=== PATIENT | female | born 1995 | race Two or more races ===

== ENCOUNTER 2017-05-09 21:44 | Emergency (ER) | payer SELFPAY ==
[2017-05-09 22:11] VITALS: PULSE 80
[2017-05-09 22:18] LABS: APPEARANCE,URINE Clear; BILIRUBIN,URINE NEGATIVE (NEGATIVE); COLOR,URINE Yellow; GLUCOSE, URINE (UA) NEGATIVE (NEGATIVE); KETONES,URINE NEGATIVE (NEGATIVE); LEUKOCYTE ESTERASE ,URINE NEGATIVE (NEGATIVE); NITRATE,URINE NEGATIVE (NEGATIVE); OCCULT BLOOD,URINE NEGATIVE (NEG-TRACE); PH,URINE 7.5; UROBILINOGEN,URINE 0.2 (0.2-1.0 EU)
[2017-05-09 22:30] LABS: RBC,URINE 0-1 (0-3AV/HPF); WBC,URINE 0-2 (0-5AV/HPF)
[2017-05-09] MEDS ORDERED: HYDROMORPHONE HCL 2 MG/ML SOL IM ONE (23:09)
[2017-05-09] MEDS ORDERED: HYDROMORPHONE 1 MG/ML SYRINGE ONE (23:14)
[2017-05-10 01:20] VITALS: BP 101/66; RESP 22; O2SAT 99
== END 2017-05-09 23:59 | disposition home or self-care (01) | DRG 781 ==
LOC: ED 21:44
DX: O26.893 Other specified pregnancy related conditions, third trimester (principal); M79.1 Myalgia; Z3A.32 32 weeks gestation of pregnancy; R35.0 Frequency of micturition
CPT/HCPCS: 59025; 81001; 96372; 99282; 99284; J1170

== ENCOUNTER 2017-05-11 12:32 | Emergency (ER) | payer SELFPAY ==
[2017-05-11 12:53] VITALS: RESP 24; TEMP 97.7
[2017-05-11 13:36] LABS: APPEARANCE,URINE Clear; BILIRUBIN,URINE NEGATIVE (NEGATIVE); COLOR,URINE Yellow; GLUCOSE, URINE (UA) NEGATIVE (NEGATIVE); KETONES,URINE NEGATIVE (NEGATIVE); LEUKOCYTE ESTERASE ,URINE TRACE (NEGATIVE); NITRATE,URINE NEGATIVE (NEGATIVE); OCCULT BLOOD,URINE NEGATIVE (NEG-TRACE); UROBILINOGEN,URINE 0.2 (0.2-1.0 EU)
[2017-05-11] MEDS ORDERED: MAGNESIUM SULFATE IV ONE (13:38)
[2017-05-11] MEDS ORDERED: BETAMETHASONE 6 MG/ML SUS IM ONE (13:40)
[2017-05-11] MEDS ORDERED: CEFAZOLIN SODIUM 1 GM PDS 2 GM in SODIUM CHLORIDE 0.9% 100 ML 100 ML IV ONE (13:41)
[2017-05-11] MEDS ORDERED: MAGNESIUM SULFATE 5 GM/10 ML SOL ONE (13:43)
[2017-05-11] MEDS ORDERED: CEFAZOLIN SODIUM 1 GM PDS ONE (13:43)
[2017-05-11] MEDS ORDERED: MAGNESIUM SULFATE IV SCH (13:45)
[2017-05-11] MEDS ORDERED: BETAMETHASONE 6 MG/ML SUS ONE (13:48)
[2017-05-11 13:50] LABS: RBC,URINE 0-2 (0-3AV/HPF)
[2017-05-11 20:27] VITALS: BP 117/72; PULSE 87; O2SAT 100
== END 2017-05-11 14:45 | disposition short-term general hospital (02) | DRG 778 ==
LOC: ED 12:32
DX: O60.03 Preterm labor without delivery, third trimester (principal); Z3A.32 32 weeks gestation of pregnancy
CPT/HCPCS: 59025; 81001; 96365; 96372; 96374; 99284; 99285; J0690; J0702; J3475